=== PATIENT | male | born 2005 | race Hispanic/Latino ===

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

== ENCOUNTER 2025-05-13 00:22 | Emergency (ER) | payer SELFPAY ==
[~2025-05-13] VITALS: Ht 180.3 cm; Wt 81.6 kg
[~2025-05-13 00:22] MED LIST: ACET-66 PO; BROM118S48 PO; IBUP-1492 PO; PSEU120T62 PO
[2025-05-13 00:48] LABS: CREATININE 1.1 mg/dL (0.5-1.3); GLOMERULAR FILTR. RATE CALC 99.0 mL/min (>90); GLUCOSE,RANDOM 264.0 mg/dL (70-105); SODIUM SERUM 138.0 mmol/L (136-145); UREA NITROGEN, BLOOD 15.0 mg/dL (7-18)
[2025-05-13 00:53] LABS: IMMATURE GRANULOCYTE ABSOLUTE 0.06 K/uL (0-1); NUCLEATED RED BLOOD CELLS 0.0 % (0.0-0.19); PLATELET COUNT (AUTO) 311 K/uL (130-400); RED BLOOD CELL COUNT(AUTO) 4.87 MIL/uL (4.50-6.20); RED CELL DISTRIBUTION WIDTH 12.4 % (11.0-15.5); WHITE BLOOD COUNT (AUTO) 15.6 K/uL (4.8-10.8)
[2025-05-13 00:54] LABS: CREATINE KINASE, TOTAL 79.0 U/L (21-232)
[2025-05-13] MEDS: 0.9%NACL 1000ML 1,000 ML IV ONE (01:12)
--- NOTE | 2025-05-13 01:17 | ERN ---
ED Note History of Present Illness Stated Complaint: SYNCOPE Chief Complaint: Syncope Time Seen by MD: 00:30 Dictation: This is a 19-year-old male who presented with his girlfriend to the emergency room for evaluation of" blackout" after indulging in partying with friends and vaping nicotine. Apparently patient inhaled very deep for more than 10 15 seconds and felt extremely weird feeling a sensation of he was not there and leaned his head towards the wall. His girlfriend thought that he might have had a stroke and insisted on evaluation in the alerted EMS. He stated that he felt palpitations while he was sitting in her and he also felt lightheaded and had difficult to catch his breath per EMS his heart rate was 180s and he decided to come in for further evaluation. No chest pain pressure PND orthopnea. No headache blurred vision facial asymmetry diplopia motor weakness or seizure activity home. No trauma. The patient and his girlfriend did not know the ingredients that the vaped The girlfriend got that the patient was extremely anxious. There was no slurred speech facial asymmetry or difficulty walking Temperature 97.9 pulse 167 respiratory rate 24 blood pressure 176/133 pulse oximetry 100% on room air Allergies: Coded Allergies: cephalexin (Unverified Allergy, Unknown, 08/15/21) Home Meds Active Scripts Acetaminophen (Acetaminophen) 500 Mg Tablet, 500 MG PO Q4H for 5 Days, #15 TAB Prov:ELLEN MARTIN 08/15/21 D-Methorphan Hb/P-Epd HCl/Bpm (Bromfed Dm Cough Syrup) 118 Ml Syrup, 10 ML PO TID for 5 Days, #100 ML Prov:ELLEN MARTIN 08/15/21 Pseudoephedrine HCl (Sudafed 12 Hour) 120 Mg Tablet.er, 120 MG PO BID for 5 Days, #10 TAB Prov:ELLEN MARTIN 08/15/21 Ibuprofen (Ibuprofen) 600 Mg Tablet, 600 MG PO Q6H PRN for PAIN, #15 TAB Prov:ELLEN MARTIN 08/15/21 Past Medical History Past Medical History: No Pertinent History, Other Additional Past Medical Hx: POOR HISTORIAN Surgical History: Cholecystectomy Social History: Smokers, Negative RN Note Reviewed/Agreed w/PFSH: Yes Review of System Dictation Constitutional: Negative for fever,chills, and weight loss Eyes: Negative for injury, pain,redness, and discharge ENT: Negative for injury,pain or swelling Cardiovascular: Negative for chest pain, and edema positive for palpitations, Respiratory: Negative for shortness of breath, cough, and wheezing, Abdomen/GI: Negative for abdominal pain, nausea, vomiting, diarrhea, and constipation Back: Negative for injury and pain : Negative for injury, bleeding and discharge MS/Extremity: Negative for injury and deformity Skin: Negative for rash, and discoloration Neuro: Negative for headache, weakness, numbness, tingling, and seizure positive for bizarre thinking, Psych: Negative for suicide ideation, homicidal ideation, and hallucinations Initial Vital Sign VS Vital Signs Date Time Temp Pulse Resp B/P (MAP) Pulse Ox O2 Delivery O2 Flow Rate FiO2 05/13/25 00:25 97.9 167 24 176/133 100 Room Air 05/13/25 00:42 0 21 Physical Exam Dictation General: awake, alert, NAD Head/Face: Normocephalic, atraumatic Eyes: PERRL, EOMI, vision at baseline ENT: oral cavity clear, TMs clear, no signs of infection Neck: Trachea midline, supple, no nuchal rigidity Cardiovascular: Sinus tachycardia RRR, normal S1/S2, No MRGs, no JVD Respiratory: CTAB, no respiratory distress, No rales or wheezes Abdomen: Soft, non-tender, non-distended, normal bowel sounds, no guarding or rebound. Skin: Warm, dry, normal turgor, no rash MS/Extremity: Pulses equal, no cyanosis, neurovascular intact, FROM Neuro: COAx4, GCS 15, strength 5/5, CN 2-12 intact, normal cerebellar exam, normal gait, Psych: Normal behavior, mood, and affect normal Extremities-trace edema without any palpable cords, Homans sign is negative Results (Laboratory/Radiology) Laboratory/Radiology Laboratory Tests Test 05/13/25 00:30 05/13/25 02:20 White Blood Count 15.6 K/uL (4.8-10.8) H Red Blood Count 4.87 MIL/uL (4.50-6.20) Hemoglobin 15.0 g/dL (14.0-18.0) Hematocrit 43.7 % (42-54) Mean Corpuscular Volume 89.7 fL (80-100) Mean Corpuscular Hemoglobin 30.8 pg (27.0-33.0) Mean Corpuscular Hemoglobin Concent 34.3 g/dL (32.0-36.0) Red Cell Distribution Width 12.4 % (11.0-15.5) Platelet Count 311 K/uL (130-400) Mean Platelet Volume 10.0 fL (7.5-10.5) Immature Granulocyte % (Auto) 0.4 % (0-1) Neutrophils (%) (Auto) 60.2 % (40.0-77.0) Lymphocytes (%) (Auto) 25.0 % (21.0-51.0) Monocytes (%) (Auto) 5.5 % (3.0-13.0) Eosinophils (%) (Auto) 7.9 % (0.0-8.0) Basophils (%) (Auto) 1.0 % (0.0-5.0) Neutrophils # (Auto) 9.4 K/uL (1.8-7.7) H Lymphocytes # (Auto) 3.9 K/uL (1.0-4.8) Monocytes # (Auto) 0.9 K/uL (0.1-1.0) Eosinophils # (Auto) 1.24 K/uL (0.00-0.70) H Basophils # (Auto) 0.15 K/uL (0.00-0.20) Absolute Immature Granulocyte (auto 0.06 K/uL (0-1) Nucleated Red Blood Cells 0.0 % (0.0-0.19) Sodium Level 138 mmol/L (136-145) Potassium Level 3.5 mmol/L (3.5-5.1) Chloride Level 101 mmol/L (101-111) Carbon Dioxide Level 26 mmol/L (21-32) Blood Urea Nitrogen 15 mg/dL (7-18) Creatinine 1.1 mg/dL (0.5-1.3) Glomerular Filtration Rate Calc 99 mL/min (>90) Random Glucose 264 mg/dL (70-105) H Total Calcium 8.5 mg/dL (8.5-10.1) Total Creatine Kinase 79 U/L (21-232) Troponin I High Sensitivity 5 ng/L (4-75) Urine Color LIGHT-YELLOW (YELLOW) Urine Appearance CLEAR (CLEAR) Urine pH 6.0 (5.0-8.0) Urine Specific [place]bert 1.011 (1.001-1.031) Urine Protein NEGATIVE mg/dL (NEGATIVE) Urine Glucose (UA) NEGATIVE mg/dL (NEGATIVE) Urine Ketones NEGATIVE mg/dL (NEGATIVE) Urine Occult Blood NEGATIVE (NEGATIVE) Urine Nitrate NEGATIVE (NEGATIVE) Urine Bilirubin NEGATIVE mg/dL (NEGATIVE) Urine Urobilinogen 0.2 mg/dL (0.2-1.0) Urine Leukocyte Esterase NEGATIVE Brittany/uL Urine Opiates Screen NEGATIVE (NEGATIVE) Urine Barbiturates Screen NEGATIVE (NEGATIVE) Urine Phencyclidine Screen NEGATIVE (NEGATIVE) Urine Amphetamines Screen NEGATIVE (NEGATIVE) Urine Benzodiazepines Screen NEGATIVE (NEGATIVE) Urine Cocaine Screen NEGATIVE (NEGATIVE) Urine Marijuana (THC) Screen POSITIVE (NEGATIVE) H Labs Reviewed?: Yes ED Course ED Course Orders Procedure Category Date Status Time Vital Signs Per CPOE 05/13/25 Transmitted Routine 00:24 Chest 1vw RAD 05/13/25 Resulted 00:24 12 Lead Ekg Tracing- EKG 05/13/25 Complete Technical 00:24 Oxygen By Nc/Pulse Ox CPOE 05/13/25 Transmitted 00:24 Maintain Iv CPOE 05/13/25 Transmitted 00:24 Iv Insertion CPOE 05/13/25 Transmitted 00:24 Cardiac Monitoring CPOE 05/13/25 Transmitted 00:24 Pulse Oximetry With CPOE 05/13/25 Transmitted Vs And Prn 00:24 Cbc With Differential LAB 05/13/25 Complete 00:24 Activity: Br W/Brp CPOE 05/13/25 Transmitted With Assist 00:24 Creatine Kinase, Total LAB 05/13/25 Complete 00:24 Troponin I High LAB 05/13/25 Complete Sensitivity 00:24 Urinalysis Profile LAB 05/13/25 Complete 00:24 Basic Metabolic Panel LAB 05/13/25 Complete 00:24 Drug Screen Urine LAB 05/13/25 Complete 00:24 0.9%Nacl 1000ml (Ns PHA 05/13/25 Complete 1000ml) 01:00 Metoprolol Tartrate PHA 05/13/25 Complete (Lopressor) 01:00 Current Medications Medications (Trade) Dose Ordered Sig/Bj Route PRN Reason Start Time Stop Time Status Last Admin Dose Admin Metoprolol Tartrate (loprESSOR) 2.5 mg ONCE ONCE IV 05/13/25 01:00 05/13/25 01:03 DC 05/13/25 01:13 Sodium Chloride 1,000 ml @ 0 mls/hr ONCE ONCE IV 05/13/25 01:00 05/13/25 01:03 DC 05/13/25 01:12 Vital Signs Date Time Temp Pulse Resp B/P (MAP) Pulse Ox O2 Delivery O2 Flow Rate FiO2 05/13/25 02:07 98.8 119 18 117/66 100 Room Air* 0 21 05/13/25 01:13 140 05/13/25 00:42 98.8 136 18 132/75 100 Room Air* 0 21 05/13/25 00:25 97.9 167 24 176/133 100 Room Air We will perform diagnostic labs, advanced imaging and administer medications according to the patient's complaint. Once the results are available, will review and personally interpreted the labs to rule out any acute life- threatening emergency the trach require immediate intervention and treatment. I will then re-evaluate the patient after treatment and diagnostic exams have return to determine whether the patient requires any further testing, can safely be discharged home or need further admission to hospital for additional treatment and evaluation. Medical Decision Making MDM Differential diagnosis: Nicotine related vasoconstriction and psychosis, delirium, unclear substance use Rationale: Tests considered and ordered secondary to shared decision making include: Previous outside records reviewed: Old ER visits. Risk of complication and/or morbidity or mortality of patient management: None Medications-Per medication reconciliation Need for hospitalization: Patient does not meet criteria for hospitalization. Need for emergency major/minor surgery: No There are no social concerns with this patient. Prescription drug management Prescriptions will include symptomatic care Patient's prior external medical records from other ER visits were reviewed by me as indicated. Prior testing and results from previous visits were reviewed. Prior tests were taken into account with medical decision making and resource utilization, independent historian/historians were used to obtain complete medical history. I independently interpreted the test that were performed, results were reviewed by me and considered findings on radiology if ordered. Medical management and examination interpretation discussions were had by me with other qualified healthcare professionals as indicated for the patient's care. 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 The patient is now being discharged to home and should follow up with the primary care physician or the specialist as directed by the ER staff. Follow-up with primary care provider in 1 to 2 days. Take medications as directed here in the emergency room. Okay to continue home medications unless otherwise discussed during your visit in the emergency room today. Return to your nearest emergency room if symptoms worsen or if there is no improvement. Call 911 if you need immediate assistance. Take Tylenol or Motrin [id number] as needed and if no contraindications are present. Increase oral hydration. A wound culture or urine culture was ordered here in the emergency room department please follow-up with primary care provider and advise them to get repeat ports from our facility. If you had any Duong wrap/splints t hat were applied here, please do not remove them until you see your primary care or specialty. Referrals: SANJANA DUVAL MD (PCP) YANE ROBBINS MD May 13, 2025 01:17
[2025-05-13 02:41] LABS: APPEARANCE,URINE CLEAR (CLEAR); GLUCOSE, URINE (UA) NEGATIVE (NEGATIVE); LEUKOCYTE ESTERASE ,URINE NEGATIVE Leu/uL (NEGATIVE); NITRATE,URINE NEGATIVE (NEGATIVE); OCCULT BLOOD,URINE NEGATIVE (NEGATIVE)
[2025-05-13 02:43] LABS: ADD UA MICROSCOPIC NO
[2025-05-13 02:55] LABS: AMPHET/METH SCREEN,URINE NEGATIVE (NEGATIVE); BARBITURATE SCREEN, URINE NEGATIVE (NEGATIVE); CANNABINOID SCREEN,URINE POSITIVE (NEGATIVE); COCAINE SCREEN,URINE NEGATIVE (NEGATIVE)
--- NOTE | 2025-05-13 02:58 | EKG ---
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
--- NOTE | 2025-05-13 03:23 | NUR ---
TRAIGE EDIT TO REFLECT UDS
--- NOTE | 2025-05-13 04:04 | HMCIMG ---
EXAM: CR Chest, 1 view CLINICAL HISTORY: Chest pain. COMPARISON: Chest radiograph dated 01/21/2012. FINDINGS: The lungs show no infiltrates or other acute findings. No pleural effusion or pneumothorax. The cardiomediastinal silhouette is within normal limits. No acute osseous abnormality. IMPRESSION: No acute cardiopulmonary process is evident. Compared to the prior study, there is no significant interval change. /D[place]zell
[2025-05-13 04:30] VITALS: BP 125/60; PULSE 105; RESP 18; TEMP 98.5; O2SAT 100
== END 2025-05-13 04:36 | disposition home or self-care (01) ==
LOC: EDH 00:22
DX: T65.291A Toxic effect of other tobacco and nicotine, accidental (unintentional), initial encounter (principal); R00.0 Tachycardia, unspecified; I16.0 Hypertensive urgency; R55 Syncope and collapse; F17.200 Nicotine dependence, unspecified, uncomplicated; Z88.1 Allergy status to other antibiotic agents; Z90.49 Acquired absence of other specified parts of digestive tract; Y92.89 Other specified places as the place of occurrence of the external cause
CPT/HCPCS: 99285; 96361; 96374; 71045; 84484; 82550; 80048; 80305; 85025; 81003; 36415; 93005; J3490